=== PATIENT | male | born 1940 | race Caucasian/White ===

== ENCOUNTER 2021-04-20 08:42 | Emergency (ER) | payer OTHER ==
[~2021-04-20 08:42] MED LIST: FLOMAX0.4 MG PO; LISINOPRIL 10MG10 MG PO; MIRALAX17 GM PO; MOBIC7.5 MG PO; NORVASC2.5 MG PO
[2021-04-20 10:43] LABS: BASOPHIL 0.5 % (0-2); EOSINOPHIL 1.6 % (0-7); HCT 37.4 % (42.0-52.0); HGB 12.4 g/dl (13.2-18.0); LYMPHOCYTE 16.5 % (15-48); MCH 31.4 pg (25.0-31.0); MCHC 33.2 g/dL (32.0-36.0); MCV 94.7 fL (78.0-100.0); MONOCYTE 5.8 % (0-12); MPV 9.5 fL (6.0-9.5); NEUTROPHIL 75.1 % (41-80); NRBC 0; PLT 194 K/uL (150-400); RBC 3.95 M/uL (4.70-6.00); RDW 13.9 % (11.5-14.0)
[2021-04-20 11:49] LABS: CREATININE 1.13 mg/dL (0.67-1.17); POTASSIUM 3.7 mmol/L (3.5-5.1)
[2021-04-20 11:50] LABS: ALBUMIN 3.6 g/dL (3.4-5.0); BILIRUBIN - TOTAL 0.5 mg/dL (0.2-1.0); GLOBULIN (CALCULATION) 3.4 g/dL
== END 2021-04-20 13:03 | disposition home or self-care (01) ==
LOC: FER 08:42
PROVIDERS: Emergency Medicine
DX: R60.0 Localized edema (principal); I10 Essential (primary) hypertension; F03.90 Unspecified dementia, unspecified severity, without behavioral disturbance, psychotic disturbance, mood disturbance, and anxiety
CPT/HCPCS: 36415; 71045; 80053; 83880; 85025; 85379; 93005; 93970